=== PATIENT | male | born 1945 | race Caucasian/White ===

== ENCOUNTER 2017-09-22 17:09 | Inpatient (IN) ==
[2017-09-22] MEDS ORDERED: FentaNYL 100 MCG/2 ML INJECTION IVP ONE (18:00)
[2017-09-22] MEDS ORDERED: KETOROLAC 30 MG/ML INJECTION IVP ONE (18:00)
[2017-09-22] MEDS ORDERED: METOCLOPRAMIDE 10mg/2ml INJECTION IVP ONE (18:00)
[2017-09-22] MEDS ORDERED: NS 1,000 ML IV ONE (18:01)
--- NOTE | 2017-09-22 18:05 | Emergency Department Report ---
Abdominal Pain HPI - General Chief Complaint: Abdominal Pain Stated Complaint: abdominal pain radiating to back Time Seen by Provider: 09/22/17 17:52 Source: patient Mode of arrival: ambulatory Limitations: no limitations - History of Present Illness HPI narrative: Patient presents with 1-1/2 hour history of sudden onset epigastric pain radiating into the back and minimally into the lower portion of the chest. Patient was sitting at home watching television when he had sudden onset of pain. Patient denies any chest pain, difficulty breathing, fevers or chills, nausea, vomiting, diarrhea, or other abdominal complaints. Patient has no body aches or sweats. No similar history in the past, no GERD history, no stomach, liver, pancreatic, or gallbladder problems. Patient does have atrial fibrillation, is on Coumadin, has diabetes, and\ orthopedic issues. - Related Data Home Medications Medication Instructions Recorded Confirmed Amlodipine [Norvasc] 10 mg PO DAILY 02/20/17 09/22/17 Atorvastatin [Lipitor] 10 mg PO HS 02/20/17 09/22/17 Cholecalciferol (Vitamin D3) 50,000 unit PO MOTH@0800 02/20/17 09/22/17 [Vitamin D3] Donepezil [Aricept] 5 mg PO HS 02/20/17 09/22/17 Ferrous Sulfate [Feosol] 325 mg PO DAILY 02/20/17 09/22/17 Furosemide [Lasix 20 mg Tab] 40 mg PO DAILY 02/20/17 09/22/17 Gabapentin [Neurontin] 800 mg PO TID 02/20/17 09/22/17 Insulin Degludec *U100* [Tresiba 30 unit SQ HS 02/20/17 09/22/17 Flextouch U-100 Pen] Insulin Lispro [HumaLOG] 10 - 15 unit SQ TIDWM 02/20/17 09/22/17 Metaxalone 800 mg PO TID PRN 02/20/17 09/22/17 Metformin [Glucophage] 500 mg PO BIDWM 02/20/17 09/22/17 Nitroglycerin 0.4 mg SL Q5M PRN 02/20/17 09/22/17 Oxycodone *IR* [Roxicodone *Ir*] 30 mg PO BID 02/20/17 09/22/17 Potassium Chloride [K-Tab ER] 20 meq PO DAILY 02/20/17 09/22/17 Sertraline [Zoloft] 100 mg PO DAILY 02/20/17 09/22/17 Tamsulosin [Flomax] 0.4 mg PO AM 02/20/17 09/22/17 Warfarin [Coumadin] 7.5 mg PO DAILY 02/20/17 09/22/17 Docusate Sodium [Colace] 100 mg PO BID 05/15/17 09/22/17 Oxycodone/Acetaminophen 5/325 1 tab PO Q6H PRN 05/15/17 09/22/17 [Percocet 5/325] Losartan Potassium [Cozaar] 25 mg PO DAILY 09/22/17 09/22/17 Magnesium Hydroxide [Montiel' 622 mg PO HS 09/22/17 09/22/17 Milk of Magnesia] Allergies Allergy/AdvReac Type Severity Reaction Status Date / Time No Known Allergies Allergy Verified 09/22/17 17:17 Review of Systems All systems: reviewed and negative except as stated PFSH Patient Stated Medical History Alzheimer's Disease Yes Angina Yes: HX OF Cardiac Arrhythmia Yes: AFIB Hypertension Yes Diabetes Mellitus Type 2 Yes: IDDM Hiatal Hernia HX OF Ulcer Yes Hx Kidney Stones Yes: HX Other Yes: ON FLOMAX Anemia Yes Osteoarthritis Yes Depression Yes Surgical History: Lumbar spine surgery - Social History Smoking status: Light tobacco smoker Substance use type: does not use Alcohol intake frequency: does not drink Physical Exam - Limitations Limitations: no limitations - General General appearance: alert - Normal Exams: Head:: Normocephalic without trauma Eyes:: Pupils are PERRLA w/ EOMI, No scleral icterus, irritation, or foreign bodies noted ENMT:: No facial trauma, nasal exudates, pharyngeal erythema, or exudates are noted Neck:: Full range of motion, without adenopathy, JVD, bruits or thyromegaly Chest/Respirations:: Clear all thomas, with good airflow, and symmetry bilaterally Cardiovascular:: Regular rate and rhythm, without murmur or gallop, Pulses 2+ all extremities, capillary refill, <2 seconds all extremities Lymphatic:: No lymphadenopathy, or lymphedema noted Musculoskeletal:: No tenderness, or deformity noted, good range of motion, all extremities Integumentary:: No rashes, hives, or bruising noted, hair and nails, without abnormality Neurological:: Patient is alert, and oriented, cranial nerves, motor/sensory/ cerebellar, exams w/o gross deficits, to observation Psychiatric:: Patient exhibits, appropriate attention, emotion and affect - Abdominal Exam Abdominal exam: Present: soft, tenderness (epigastric tenderness, with referred pain anywhere in the abdomen into the epigastrium.), guarding, normal bowel sounds, hypoactive bowel sounds. Absent: distention, rebound, rigidity, diminished bowel sounds, hyperactive bowel sounds, organomegaly, trauma, obturator sign, Perdomo's sign, Rovsing's sign, tenderness at McBurney's Point, mass, bruit, pulsatile mass, hernia Course Vital Signs Temperature 97.9 F 09/22/17 17:12 Pulse Rate 68 09/22/17 17:12 Respiratory Rate 14 09/22/17 17:12 Blood Pressure 156/74 H 09/22/17 17:12 Pulse Oximetry 94 09/22/17 17:12 Temperature 97.9 F 09/22/17 17:12 Pulse Rate 68 09/22/17 17:12 Respiratory Rate 14 09/22/17 17:12 Blood Pressure 156/74 H 09/22/17 17:12 Pulse Oximetry 94 09/22/17 17:12 Abdominal Pain - MDM Narrative Medical decision making narrative: given fentanyl 100 g IV, Toradol 30 mg IV, Reglan 10 mg IV and 1 L normal saline IV fluid bolus - CBC - n CMP/L - n with profoundly elevated lipase 41,000, slight bump in one liver enzyme only. EKG - ventricular paced rhythm, without visible ectopy, or ischemia, no STEMI Troponin - normal UA - CXR/abdomen - mild diffuse chronic changes in the chest only, no obvious abnormalities in the abdomen Patient feels much better after initial medications, I discussed his elevated lipase, and suggested CT scan of the abdomen 2019 - patient complains of increasing pain, given [address] abdomen and pelvis - trace peripancreatic stranding only. Case is discussed with Dr. Vela, we'll admit the patient inpatient for acute pancreatitis - Lab Data Result diagrams: 09/22/17 18:15 09/22/17 18:15 Disposition Clinical Impression: Acute pancreatitis Qualifiers: Pancreatitis type: unspecified pancreatitis type Acute pancreatitis complication: no infection or necrosis Qualified Code(s): K85.90 - Acute pancreatitis without necrosis or infection, unspecified Disposition: 02 To [facility] [place] Acute Care Condition: Improved Prescriptions: No Action Tamsulosin [Flomax] 0.4 mg PO AM Donepezil [Aricept] 5 mg PO HS Metformin [Glucophage] 500 mg PO BIDWM Atorvastatin [Lipitor] 10 mg PO HS Metaxalone 800 mg PO TID PRN PRN Reason: Prn Orders Nitroglycerin 0.4 mg SL Q5M PRN PRN Reason: Chest Pain Insulin Lispro [HumaLOG] 10 - 15 unit SQ TIDWM Warfarin [Coumadin] 7.5 mg PO DAILY Insulin Degludec *U100* [Tresiba Flextouch U-100 Pen] 30 unit SQ HS Amlodipine [Norvasc] 10 mg PO DAILY Cholecalciferol (Vitamin D3) [Vitamin D3] 50,000 unit PO MOTH@0800 Sertraline [Zoloft] 100 mg PO DAILY Ferrous Sulfate [Feosol] 325 mg PO DAILY Docusate Sodium [Colace] 100 mg PO BID Oxycodone/Acetaminophen 5/325 [Percocet 5/325] 1 tab PO Q6H PRN PRN Reason: Pain Losartan Potassium [Cozaar] 25 mg PO DAILY Furosemide [Lasix 20 mg Tab] 40 mg PO DAILY Oxycodone *IR* [Roxicodone *Ir*] 30 mg PO BID Gabapentin [Neurontin] 800 mg PO TID Potassium Chloride [K-Tab ER] 20 meq PO DAILY Magnesium Hydroxide [Montiel' Milk of Magnesia] 622 mg PO HS Referrals: Octaviano Cook MD [Family Provider] - - Seen By: physician
[2017-09-22] MEDS: SALINE FLUSH 10ml SYRINGE IVF PRN ×2 (18:28→20:28)
[2017-09-22] MEDS ORDERED: MORPHINE SULFATE 4mg INJECTION IVP ONE (20:22)
[2017-09-22] MEDS ORDERED: ONDANSETRON 4 MG/2 ML INJECTION IVP PRN (21:44)
[2017-09-22] MEDS ORDERED: METOCLOPRAMIDE 10mg/2ml INJECTION IVP PRN (21:44)
[2017-09-22] MEDS ORDERED: NITROGLYCERIN 0.4 MG SUBLINGUAL TABLET SL PRN (22:22)
[2017-09-22] MEDS: NS 1,000 ML IV SCH (22:34)
[2017-09-22 22:42] VITALS: BMI 38.5
[2017-09-22] MEDS: MORPHINE SULFATE 4mg INJECTION IVP PRN (23:46)
--- NOTE | 2017-09-23 01:35 | History & Physical Report ---
History of Present Illness Date: 09/23/17 Chief complaint: abdominal pain HPI: The pt is a 72 yo who presents to the ER c/o abdominal pain over the epigastric area , constant , sharp nonradiating for about 5 hours. no nausea, vomiting, recent GI illness, never had symptoms like this before. Review of Systems All systems PM: 10-point ROS was reviewed, no additional remarkable complaints except - Constitutional Constitutional: Absent: anorexia, fatigue, fever(s), night sweats, weakness - Cardiovascular Cardiovascular: Absent: chest pain - Respiratory Respiratory: Absent: cough - Gastrointestinal Gastrointestinal: Present: abdominal pain. Absent: change in bowel habits, change in stool character, coffee ground emesis, diarrhea, nausea Past Medical History Patient Stated Medical History Alzheimer's Disease Yes Angina Yes: HX OF Cardiac Arrhythmia Yes: AFIB Hypertension Yes Diabetes Mellitus Type 2 Yes: IDDM Hiatal Hernia HX OF Ulcer Yes Hx Kidney Stones Yes: HX Anemia Yes Osteoarthritis Yes Depression Yes chronic back pain, Surgical History: Lumbar spine surgery Family History Updates: none - Social History Smoking status: Former smoker Substance use type: does not use Alcohol intake: never Alcohol intake frequency: does not drink Housing: house Household members: spouse Current occupational status: retired Medications Home Medications Medication Instructions Recorded Confirmed Type Amlodipine [Norvasc] 10 mg PO DAILY 02/20/17 09/22/17 History Atorvastatin [Lipitor] 10 mg PO HS 02/20/17 09/22/17 History Cholecalciferol (Vitamin D3) 50,000 unit PO MOTH@0800 02/20/17 09/22/17 History [Vitamin D3] Donepezil [Aricept] 5 mg PO HS 02/20/17 09/22/17 History Ferrous Sulfate [Feosol] 325 mg PO DAILY 02/20/17 09/22/17 History Furosemide [Lasix 20 mg Tab] 40 mg PO DAILY 02/20/17 09/22/17 History Gabapentin [Neurontin] 800 mg PO TID 02/20/17 09/22/17 History Insulin Degludec *U100* [Tresiba 30 unit SQ HS 02/20/17 09/22/17 History Flextouch U-100 Pen] Insulin Lispro [HumaLOG] 10 - 15 unit SQ TIDWM 02/20/17 09/22/17 History Metaxalone 800 mg PO TID PRN 02/20/17 09/22/17 History Metformin [Glucophage] 500 mg PO BIDWM 02/20/17 09/22/17 History Nitroglycerin 0.4 mg SL Q5M PRN 02/20/17 09/22/17 History Oxycodone *IR* [Roxicodone *Ir*] 30 mg PO BID 02/20/17 09/22/17 History Potassium Chloride [K-Tab ER] 20 meq PO DAILY 02/20/17 09/22/17 History Sertraline [Zoloft] 100 mg PO DAILY 02/20/17 09/22/17 History Tamsulosin [Flomax] 0.4 mg PO AM 02/20/17 09/22/17 History Warfarin [Coumadin] 7.5 mg PO DAILY 02/20/17 09/22/17 History Docusate Sodium [Colace] 100 mg PO BID 05/15/17 09/22/17 History Oxycodone/Acetaminophen 5/325 1 tab PO Q6H PRN 05/15/17 09/22/17 History [Percocet 5/325] Losartan Potassium [Cozaar] 25 mg PO DAILY 09/22/17 09/22/17 History Magnesium Hydroxide [Montiel' 622 mg PO HS 09/22/17 09/22/17 History Milk of Magnesia] Allergies Allergy/AdvReac Type Severity Reaction Status Date / Time No Known Allergies Allergy Verified 09/22/17 17:17 Exam Vital Signs: Temperature 97.4 F 09/22/17 22:22 Pulse Rate 70 09/22/17 22:22 Respiratory Rate 16 09/22/17 22:22 Blood Pressure 139/71 09/22/17 22:22 Pulse Oximetry 92 09/22/17 22:22 Height/Weight/BMI: Height 1.85 m Weight 132.4 kg Body Mass Index 38.5 - Constitutional Present: no acute distress, well nourished, obese - Routine HEENT Exam Head: Present: normocephalic - Routine Respiratory Exam Present: CTA bilaterally - Routine Cardiovascular Exam Present: RRR, no murmur - Routine Abdominal Exam Present: soft, non tender. Absent: rebound, guarding - Routine Extremities Exam Present: no edema - Routine Skin Exam Present: intact. Absent: rash - Routine Neurological Exam Present: alert, oriented X3 Results - Labs CBC & Chem 7: 09/22/17 18:15 09/22/17 18:15 Assessment and Plan (1) Diabetes 1.5, managed as type 2 Current visit: Yes Status: Acute (2) A-fib Current visit: Yes Status: Acute (3) Chronic back pain greater than 3 months duration Current visit: Yes Status: Acute (4) Acute pancreatitis Current visit: Yes Status: Acute Assessment and Plan: the pt is in stable condition and in no distress surprisingly. Will monitor for changes, repeat lipase in am, check lipids, consider MRCP since CT abd was negative, IV narcotics for pain controll, cont home meds with sips of water but NPO. - Physician Narrative Narrative: Date: 09/23/17 Time: 0132 Hospital Course Summary Disclaimer: The visit summary below is not to be considered part of the above Progress Note.
[2017-09-23] MEDS: MORPHINE SULFATE 4mg INJECTION IVP PRN ×2 (02:28→04:18)
[2017-09-23] MEDS: NS 1,000 ML IV SCH ×2 (08:01→18:02)
--- NOTE | 2017-09-23 08:11 | CT Scan Report ---
Indication: sudden epigastric/RUQ pain, elevated lipase 41K PROCEDURE: CT abdomen pelvis wo con: Encounter: Initial Comparison: Radiographs from the same date Technique: Axial CT images were performed through the abdomen and pelvis without intravenous contrast. Coronal and sagittal two-dimensional reformats. Automated Exposure Control and Iterative Reconstruction dose reducing techniques were utilized. Findings: Mild subpleural scarring in the lung bases. The unenhanced liver is grossly normal. The gallbladder is unremarkable. The spleen and left adrenal glands are within normal limits. There is questionable trace mesenteric stranding surrounding the pancreatic head. Minimal adenomatous hyperplasia of the right adrenal gland. Right renal cyst and small nonobstructing right renal stone. Left kidney is unremarkable. No abdominal or pelvic lymphadenopathy. The bladder is normal. Prostate and rectum are normal. No free fluid. No bowel obstruction. Moderate stool in the colon. The appendix is normal. Bone windows are negative for acute findings. Degenerative and postoperative changes in the thoracolumbar spine. Impression: CT findings of early or mild acute pancreatitis. Otherwise negative exam. There is a preliminary report by [facility]. .
--- NOTE | 2017-09-23 08:37 | XRay Report ---
Indication: epigastric pain with radiation into the back and chest PROCEDURE: PA view of the chest with supine and upright AP views of the abdomen Encounter: Initial Comparison: CT abdomen from the same date FINDINGS: Scarring in the lung bases. No acute pneumonia. No pleural effusion or pneumothorax. The heart size, pulmonary vasculature and mediastinum are within normal limits. Left pacemaker. There is no free air on the upright view. The bowel gas pattern is nonobstructive and nonspecific. Gas is seen in nondilated small and large bowel to the level of the rectum. Moderate stool is seen throughout the colon. IMPRESSION: 1. No acute cardiopulmonary abnormality. 2. No evidence of acute obstruction or free air. .
[2017-09-23] MEDS: TAMSULOSIN 0.4 MG CAPSULE PO SCH ×2 (09:07→09:08)
[2017-09-23] MEDS: OXYCODONE IR PO SCH ×2 (09:08→20:00)
--- NOTE | 2017-09-23 11:58 | Ultrasound Report ---
Indication: pancreatitis PROCEDURE: US gall bladder: Encounter: Initial Comparison: None Technique: Grayscale and color Doppler sonographic imaging of the right upper quadrant of the abdomen was performed. Findings: Hepatic parenchyma is homogeneous without evidence for focal mass. The gallbladder wall is abnormally thickened at 11 mm in diameter. Small mobile shadowing gallstones. Small amount of pericholecystic fluid. Sonographic Perdomo's sign was reportedly positive. Both the intra and extrahepatic biliary system are of normal caliber with the common duct measuring 7 mm in dimension. Visualized portions of the head and body of the pancreas are unremarkable. The right kidney is present without collecting system dilatation. The right kidney measures 14.8 cm in length. Prominent 5 cm right renal cyst. Impression: Acute cholecystitis. Surgical consultation is recommended. .
[2017-09-23] MEDS ORDERED: WARFARIN 7.5 MG TABLET PO SCH (12:00)
[2017-09-23] MEDS ORDERED: PHYTONADIONE 5 MG/2.5 ML ORAL LIQUID PO ONE (14:38)
[2017-09-23] MEDS: LOSARTAN 50 MG TABLET PO SCH (15:27)
--- NOTE | 2017-09-23 19:21 | General Surgery Consult Note ---
Consult date: 09/23/17 Attending Physician: Seda Pearce MD Reason for consult: gallstones (pancreatitis) PFS Patient Stated Medical History Alzheimer's Disease Yes Angina Yes: HX OF Cardiac Arrhythmia Yes: AFIB Hypertension Yes Diabetes Mellitus Type 2 Yes: IDDM Hiatal Hernia HX OF Ulcer Yes Hx Kidney Stones Yes: HX Anemia Yes Osteoarthritis Yes Depression Yes Surgical History: Lumbar spine surgery Family History: Father - "heart stopped" Mother - "heart stopped" - Social History Smoking status: Former smoker Substance use type: does not use Alcohol intake: never Alcohol intake frequency: does not drink Housing: house Household members: spouse Current occupational status: retired Medications Home Medications Medication Instructions Recorded Confirmed Type Amlodipine [Norvasc] 10 mg PO DAILY 02/20/17 09/22/17 History Atorvastatin [Lipitor] 10 mg PO HS 02/20/17 09/22/17 History Cholecalciferol (Vitamin D3) 50,000 unit PO MOTH@0800 02/20/17 09/22/17 History [Vitamin D3] Donepezil [Aricept] 5 mg PO HS 02/20/17 09/22/17 History Ferrous Sulfate [Feosol] 325 mg PO DAILY 02/20/17 09/22/17 History Furosemide [Lasix 20 mg Tab] 40 mg PO DAILY 02/20/17 09/22/17 History Gabapentin [Neurontin] 800 mg PO TID 02/20/17 09/22/17 History Insulin Degludec *U100* [Tresiba 30 unit SQ HS 02/20/17 09/22/17 History Flextouch U-100 Pen] Insulin Lispro [HumaLOG] 10 - 15 unit SQ TIDWM 02/20/17 09/22/17 History Metaxalone 800 mg PO TID PRN 02/20/17 09/22/17 History Metformin [Glucophage] 500 mg PO BIDWM 02/20/17 09/22/17 History Nitroglycerin 0.4 mg SL Q5M PRN 02/20/17 09/22/17 History Oxycodone *IR* [Roxicodone *Ir*] 30 mg PO BID 02/20/17 09/22/17 History Potassium Chloride [K-Tab ER] 20 meq PO DAILY 02/20/17 09/22/17 History Sertraline [Zoloft] 100 mg PO DAILY 02/20/17 09/22/17 History Tamsulosin [Flomax] 0.4 mg PO AM 02/20/17 09/22/17 History Warfarin [Coumadin] 7.5 mg PO DAILY 02/20/17 09/22/17 History Docusate Sodium [Colace] 100 mg PO BID 05/15/17 09/22/17 History Oxycodone/Acetaminophen 5/325 1 tab PO Q6H PRN 05/15/17 09/22/17 History [Percocet 5/325] Losartan Potassium [Cozaar] 25 mg PO DAILY 09/22/17 09/22/17 History Magnesium Hydroxide [Montiel' 622 mg PO HS 09/22/17 09/22/17 History Milk of Magnesia] Allergies Allergy/AdvReac Type Severity Reaction Status Date / Time No Known Allergies Allergy Verified 09/22/17 17:17 Review of Systems 10-point ROS: negative except for HPI and the following: - Cardiovascular Cardiovascular: Present: irregular heart beat (a-fib) - Gastrointestinal Gastrointestinal: Present: constipation - Musculoskeletal Musculoskeletal: Present: back pain, joint pain - Neurological Neurological: Present: numbness (neuropathy) - Psychiatric Psychiatric: Present: depression - Endocrine Endocrine: Present: diabetes - Hematologic/Lymphatic Hematologic/Lymphatic: Present: easy bruising, use of blood thinners - Vital Signs Last Vital Signs Temp 97.8 F 09/23/17 15:00 Pulse 62 09/23/17 15:00 Resp 20 09/23/17 15:00 BP 143/80 H 09/23/17 15:00 Pulse Ox 93 09/23/17 15:00 - Laboratory Result Diagrams: 09/23/17 05:18 09/23/17 05:18 General Surgery Results - Results Labs: 09/23/17 05:18 09/23/17 05:18 Hospital Course Summary Disclaimer: The visit summary below is not to be considered part of the above Progress Note.
[2017-09-23] MEDS: ATORVASTATIN 10 MG TABLET PO SCH (20:00)
--- NOTE | 2017-09-23 20:31 | Consultation ---
DATE OF CONSULTATION 09/23/2017 FINDINGS Mr. Sandy is a 72-year-old gentleman whom I was asked to see today as a result of his history and physical findings of abdominal pain in conjunction with laboratory and radiographic evidence consistent with gallstone pancreatitis. Patient informs me that the other day he was working out on his garage and had come back in to rest. He states that he then developed severe pain within his upper abdomen. Patient states he called his who was at work. Patient states his brought him into the hospital once she had "gotten home." Patient states that he was subsequently admitted to the hospital. Denies any history for alcohol use. Patient states that today he is feeling a little better but continues to have back pain. The patient informed me that he does suffer from chronic back pain. The pain within his epigastric region was constant in nature. He did have a component of some nausea in association with the pain. Pain was described as radiating in towards his back. PAST MEDICAL HISTORY, PAST SURGICAL HISTORY, MEDICATIONS, ALLERGIES, SOCIAL HISTORY, FAMILY HISTORY, REVIEW OF SYSTEMS Performed by my nurse practitioner, Chirag Lazo APRN. PHYSICAL EXAM GENERAL: Mr. Sandy is a 72-year-old gentleman who this evening did not appear to be in acute distress. VITAL SIGNS: Temperature 97.8, pulse 62, respirations 20, blood pressure 143/80 , SAO2 93% on room air. HEENT: Normocephalic. Pupils are equally round and react to light and accommodation. NECK: Supple without lymphadenopathy. CHEST: Clear to auscultation bilaterally. HEART: Regular rate and rhythm. Normal S1 and S2 without gallops, murmurs or clicks. ABDOMEN: Palpation of the abdomen did reveal some tenderness within the epigastric region. There was a slight component of some voluntary guarding but no evidence for involuntary guarding or rebound tenderness. I do not appreciate any evidence for hepatosplenomegaly or other abnormal masses. EXTREMITIES: Without clubbing, cyanosis, or edema. NEURO: Cranial nerves II-XII grossly intact. Patient is without focal motor or sensory deficits. LABORATORY/RADIOGRAPHIC EVALUATION The patient did have a CBC, CMP and lipase level upon admission. His lipase was significantly elevated at 41,383. His lipase today has markedly improved at 7561. He does have some elevation of his liver function tests today with an AST and ALT of 173 and 109, respectively. Alkaline phosphatase is normal at 58. Total bilirubin is normal at 1.0. CBC was obtained today and found to be without marked abnormalities. Radiographically, he did have a CT scan of his abdomen and pelvis. Findings were consistent with that of mild acute pancreatitis, otherwise negative exam. The patient did have a gallbladder ultrasound obtained as well. Gallbladder ultrasound revealed that the gallbladder wall was abnormally thickened at 11 mm. There were several small multiple shadowing gallstones as well as a small amount of pericholecystic fluid. Findings were consistent with that of an acute cholecystitis. ASSESSMENT 72-year-old gentleman with associated medical comorbidities including atrial fibrillation requiring chronic coumadinization who developed gallstone pancreatitis. Patient improving from a clinical and laboratory standpoint. PLAN Would recommend that we continue with current care. Earlier today the patient was given vitamin K to reverse his INR. Will recheck INR tomorrow as well as repeat lab with lipase levels. When his lipase has essentially returned to normal, his INR is an acceptable level and his abdominal pain has resolved, it would be my recommendation that at that time we would then proceed with surgical intervention/laparoscopic possible robotic- assisted cholecystectomy. I did discuss with the patient what a laparoscopic cholecystectomy would entail and its associated risks which included but were not inclusive of bleeding, infection, potential conversion to open procedure, as well as potential injury to adjacent structures, especially the common bile duct. The patient understood and agreed with the proposed plan/algorithm as stated above. TRICE
[2017-09-24] MEDS: NS 1,000 ML IV SCH ×2 (03:53→15:07)
[2017-09-24] MEDS: MORPHINE SULFATE 4mg INJECTION IVP PRN ×3 (04:43→15:15)
--- NOTE | 2017-09-24 08:37 | General Surgery Progress Note ---
Subjective Patient reports: flatus, afebrile Narrative: Morphine during the night was mostly for back pain. States minimal epigastric and RUQ pain, but pain increased RUQ with palpation. Denies nausea. - Vital Signs Last Vital Signs Temp 97.3 F 09/24/17 07:30 Pulse 65 09/24/17 07:30 Resp 16 09/24/17 07:30 BP 151/88 H 09/24/17 07:30 Pulse Ox 93 09/24/17 07:30 - Laboratory Result Diagrams: 09/24/17 03:53 09/24/17 03:53 Laboratory Tests 09/22/17 09/23/17 09/23/17 18:15 05:18 05:18 INR Total Bilirubin 1.20 1.00 AST 60 H 173 H D ALT 25 109 H D Lipase 46948 H 7561 H 09/23/17 09/24/17 09/24/17 12:07 03:53 03:53 INR 2.43 H 1.82 H Total Bilirubin 1.40 H AST 63 H D ALT 75 H Lipase 591 H D - Abnormal Exam Abdominal: obese, tender (mild RUQ) - Normal Exam General: awake, alert, oriented, no acute distress Respiratory: clear bilaterally, no labored breathing Abdominal: BS normo active x4, soft Psychiatric: normal affect Assessment and Plan (1) Gallstone pancreatitis Current Visit: Yes Status: Acute Plan: Lipase down to 591 today (7561 yesterday) INR 1.83 would like it 1.5 or less before surgery. Bilirubin up a little 1.40 (1.00 yesterda). Per Dr. Fowler, full liquids and dose vitamin K today. Plan on Robotic lap noe tomorrow. Hospital Course Summary Disclaimer: The visit summary below is not to be considered part of the above Progress Note.
[2017-09-24] MEDS ORDERED: PHYTONADIONE (Adult) INJ 10 MG in NS 50 ML IV ONE (08:44)
[2017-09-24] MEDS: TAMSULOSIN 0.4 MG CAPSULE PO SCH (09:17)
[2017-09-24] MEDS: OXYCODONE IR PO SCH ×2 (09:17→20:07)
[2017-09-24] MEDS: LOSARTAN 50 MG TABLET PO SCH (09:17)
[2017-09-24] MEDS ORDERED: BISACODYL 10 MG SUPPOSITORY RECTALLY PRN (11:21)
--- NOTE | 2017-09-24 11:29 | Progress Note ---
- Date 09/24/17 Subjective: Patient is feeling well today. Reported back pain overnight which is chronic for him and worsened by hospital bed. He reports his abdominal pain is most resolved. Tolerated a clear liquid diet well and is eating this am on exam. 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 His INR was 1.8 today so plans for surgery tomorrow. Objective Vital signs: Temperature 97.3 F 09/24/17 07:30 Pulse Rate 60 09/24/17 08:00 Respiratory Rate 16 09/24/17 07:30 Blood Pressure 151/88 H 09/24/17 07:30 Pulse Oximetry 93 09/24/17 07:30 Height/Weight/BMI: Height 6 ft 1 in Weight 133 kg Body Mass Index 38.5 - Constitutional Present: no acute distress, obese - Routine HEENT Exam Head: Present: normocephalic, atraumatic Eye: Present: EOMI, conjunctivae pink ENT: Present: mucous membranes moist, nares patent - Routine Respiratory Exam Present: CTA bilaterally. Absent: wheezes, crackles - Routine Abdominal Exam Present: soft, normoactive bowel sounds, non distended, non tender. Absent: tenderness, rebound, guarding - Routine Extremities Exam Present: no edema, pulses intact, normal capillary refill. Absent: cyanosis, clubbing - Routine Back/Spine/Pelvis Exam Back/Spine: Absent: erythema, warmth - Routine Musculoskeletal Exam Musculoskeletal: Present: no clubbing or cyanosis, normal strength. Absent: no tenderness, no erythema - Routine Skin Exam Present: intact, dry, warm - Routine Neurological Exam Present: alert, oriented X3, CN II-XII intact - Routine Psychiatric Exam Present: normal affect, normal thought process Results - Labs CBC & Chem 7: 09/24/17 03:53 09/24/17 03:53 Assessment and Plan (1) Acute pancreatitis Current visit: Yes Status: Acute (2) Diabetes 1.5, managed as type 2 Current visit: Yes Status: Acute (3) A-fib Current visit: Yes Status: Acute (4) Chronic back pain greater than 3 months duration Current visit: Yes Status: Acute Assessment and Plan: Assessment Acute Gallstone pancreatitis Abdominal pain/RUQ pain Transaminitis-improving Back pain Constipation A fib with resting bradycardia Pacemaker dependent joint terminal attack controller anticoagulation DM2, on insulin Coronary artery disease Alzheimer's dementia Hx lumbar spinal stenosis Plan Plan for surgery (lap noe) tomorrow if INR <1.5 Discuss Vit K with surgery team Monitor labs Pain control PRN Glucose control, diabetic diet and glucose monitoring Begin bowel regimen SCDs - Physician Narrative Physician: other (Ashanti Rios MD) Narrative: Date: 09/24/17 Time: 1124 Hospital Course Summary Disclaimer: The visit summary below is not to be considered part of the above Progress Note.
[2017-09-24] MEDS: INSULIN ASPART 100unit/ml INJECTION SQ PRN ×3 (11:58→20:07)
[2017-09-24] MEDS: SENNA + DOCUSATE TABLET PO PRN (11:59)
[2017-09-24] MEDS: INSULIN ASPART 100unit/ml INJECTION SQ SCH ×2 (13:10→18:03)
--- NOTE | 2017-09-24 16:43 | Progress Note ---
DATE OF SERVICE 09/24/2017 FINDINGS Mr. Sandy stated that he was feeling better today. States that he "feels well enough he would like to go home." PHYSICAL EXAM VITAL SIGNS: Afebrile, normotensive. Last recorded vitals include temperature 97.3, pulse 65, respirations 16, blood pressure 151/88, SAO2 93% on room air. CHEST: Clear to auscultation bilaterally. HEART: Regular rate and rhythm. Normal S1 and S2 without gallops, murmurs or clicks. ABDOMEN: Palpation of the abdomen today reveals it to be soft and essentially nontender. He does have some minimal tenderness within the epigastric region but this is improved from yesterday. No evidence for guarding or rebound. LABORATORY/RADIOGRAPHIC EVALUATION The patient had CBC, INR and CMP obtained today. CBC is stable. Hemoglobin is 13.3. White count 7.8. INR remains elevated but improved at to 1.82. CMP reveals a total bilirubin to have increased slightly to 1.4. AST and ALT are improved at 63 and 75, respectively. Lipase remains elevated at 591. ASSESSMENT 72-year-old gentleman with resolving gallstone pancreatitis. PLAN Will go and place the patient on full liquids today. Will go ahead and give some additional vitamin K to reverse his coagulopathy. Will repeat lipase levels tomorrow. Will keep n.p.o. tonight in preparation for planned cholecystectomy tomorrow. I informed the patient that today I would like to go ahead and try to reverse his coagulopathy and allow his pancreatitis to completely resolve before proceeding with surgical intervention. I informed the patient that more than likely we would proceed with cholecystectomy tomorrow. The patient understood and agreed with the proposed plan. TRICE
[2017-09-24] MEDS: ATORVASTATIN 10 MG TABLET PO SCH (20:07)
[2017-09-25] MEDS: NS 1,000 ML IV SCH ×5 (00:15→22:36)
[2017-09-25] MEDS: MORPHINE SULFATE 4mg INJECTION IVP PRN (02:25)
[2017-09-25] MEDS: INSULIN ASPART 100unit/ml INJECTION SQ SCH ×2 (08:33→13:03)
--- NOTE | 2017-09-25 09:15 | Progress Note ---
- Date 09/25/17 Subjective: Patient is doing well today other than complaining of back pain. He is disappointed surgery isn't earlier in the day because he wants to go home. Plans for OR around 1400 today. Objective Vital signs: Temperature 97.1 F 09/25/17 07:47 Pulse Rate 64 09/25/17 07:47 Respiratory Rate 14 09/25/17 07:47 Blood Pressure 161/74 H 09/25/17 07:47 Pulse Oximetry 92 09/25/17 07:47 Height/Weight/BMI: Height 6 ft 1 in Weight 133 kg Body Mass Index 38.5 - Constitutional Present: no acute distress, obese - Routine HEENT Exam Head: Present: normocephalic, atraumatic Eye: Present: EOMI, conjunctivae pink ENT: Present: mucous membranes moist, nares patent - Routine Respiratory Exam Present: CTA bilaterally. Absent: respiratory distress - Routine Cardiovascular Exam Present: RRR, no murmur - Routine Abdominal Exam Present: soft, normoactive bowel sounds. Absent: tenderness - Routine Extremities Exam Present: no edema. Absent: cyanosis, clubbing - Routine Musculoskeletal Exam Musculoskeletal: Present: normal strength, moving extremities well - Routine Skin Exam Present: intact, dry, warm - Routine Neurological Exam Present: alert, oriented X3, CN II-XII intact - Routine Psychiatric Exam Present: normal affect, normal thought process Results - Labs CBC & Chem 7: 09/25/17 03:54 09/25/17 03:54 Assessment and Plan (1) Acute pancreatitis Current visit: Yes Status: Acute (2) Diabetes 1.5, managed as type 2 Current visit: Yes Status: Acute (3) A-fib Current visit: Yes Status: Acute (4) Chronic back pain greater than 3 months duration Current visit: Yes Status: Acute Assessment and Plan: Assessment Acute Gallstone pancreatitis Abdominal pain/RUQ pain Transaminitis-improved Back pain Constipation-had moderate BM yesterday A fib with resting bradycardia Pacemaker dependent FDC anticoagulation-currently on hold for surgery DM2, on insulin Coronary artery disease Alzheimer's dementia Hx lumbar spinal stenosis Plan Plan for surgery this afternoon Monitor labs Pain control PRN Glucose control, diabetic diet and glucose monitoring Continue bowel regimen Will discuss timing of restarting of anticoagulation with surgery team SCDs DVT Prophylaxis: SCD's Resuscitation Status: Full Code - Physician Narrative Physician: other (Ashanti Rios MD) Narrative: Date: 09/25/17 Time: 0910 Hospital Course Summary Disclaimer: The visit summary below is not to be considered part of the above Progress Note. 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 DM2, on insulin Coronary artery disease Alzheimer's dementia Hx lumbar spinal stenosis Plan Plan for surgery (lap noe) tomorrow if INR <1.5 Discuss Vit K with surgery team Monitor labs Pain control PRN Glucose control, diabetic diet and glucose monitoring Begin bowel regimen SCDs 09/25 Assessment Acute Gallstone pancreatitis Abdominal pain/RUQ pain Transaminitis-improved Back pain Constipation-had moderate BM yesterday A fib with resting bradycardia Pacemaker dependent FDC anticoagulation-currently on hold for surgery DM2, on insulin Coronary artery disease Alzheimer's dementia Hx lumbar spinal stenosis Plan Plan for surgery this afternoon Monitor labs Pain control PRN Glucose control, diabetic diet and glucose monitoring Continue bowel regimen Will discuss timing of restarting of anticoagulation with surgery team SCDs
[2017-09-25] MEDS: TAMSULOSIN 0.4 MG CAPSULE PO SCH (09:19)
[2017-09-25] MEDS: LOSARTAN 50 MG TABLET PO SCH (09:19)
[2017-09-25] MEDS: OXYCODONE IR PO SCH ×2 (09:19→22:22)
[2017-09-25] MEDS ORDERED: BUPIVACAINE 0.25%/EPI 1:200,000 30ml SDV ONE (13:26)
[2017-09-25] MEDS ORDERED: INDOCYANINE GREEN 25mg INJECTION ONE (13:26)
[2017-09-25] MEDS ORDERED: SALINE FLUSH 10ml SYRINGE ONE (13:30)
[2017-09-25] MEDS ORDERED: IOHEXOL 300mg/ml 50ml INJECTION ONE (13:30)
--- NOTE | 2017-09-25 13:42 | General Surgery Progress Note ---
Subjective Patient reports: feels better, pain is less (just minimal pain with palpation RUQ.) Narrative: Lipase back to normal 133 INR 1.26, Bilirubin elevated at 1.40 - Vital Signs Last Vital Signs Temp 97.1 F 09/25/17 07:47 Pulse 63 09/25/17 08:00 Resp 14 09/25/17 07:47 BP 161/74 H 09/25/17 07:47 Pulse Ox 92 09/25/17 07:47 - Laboratory Result Diagrams: 09/25/17 03:54 09/25/17 03:54 - Abnormal Exam Abdominal: obese, tender (RUQ) - Normal Exam General: awake, alert, oriented, no acute distress Cardiovascular: regular rate Respiratory: no labored breathing Assessment and Plan (1) Gallstone pancreatitis Current Visit: Yes Status: Acute Plan: Plan Robitc lap noe this afternoon. Plan on DC to home tomorrow if all goes well. Hospital Course Summary Disclaimer: The visit summary below is not to be considered part of the above Progress Note. Hospital Course: 09/24 Assessment Acute Gallstone pancreatitis Abdominal pain/RUQ pain Transaminitis-improving Back pain Constipation A fib with resting bradycardia Pacemaker dependent exterminator helper anticoagulation DM2, on insulin Coronary artery disease Alzheimer's dementia Hx lumbar spinal stenosis Plan Plan for surgery (lap noe) tomorrow if INR <1.5 Discuss Vit K with surgery team Monitor labs Pain control PRN Glucose control, diabetic diet and glucose monitoring Begin bowel regimen SCDs 09/25 Assessment Acute Gallstone pancreatitis Abdominal pain/RUQ pain Transaminitis-improved Back pain Constipation-had moderate BM yesterday A fib with resting bradycardia Pacemaker dependent exterminator helper anticoagulation-currently on hold for surgery DM2, on insulin Coronary artery disease Alzheimer's dementia Hx lumbar spinal stenosis Plan Plan for surgery this afternoon Monitor labs Pain control PRN Glucose control, diabetic diet and glucose monitoring Continue bowel regimen Will discuss timing of restarting of anticoagulation with surgery team SCDs
[2017-09-25] MEDS ORDERED: INDOCYANINE GREEN 25mg INJECTION IVP ONE (13:47)
[2017-09-25] MEDS ORDERED: SALINE FLUSH 10ml SYRINGE IV ONE (13:47)
[2017-09-25] MEDS ORDERED: IOHEXOL 300mg/ml 50ml INJECTION OPSITE ONE (13:49)
[2017-09-25] MEDS ORDERED: BUPIVACAINE 0.25%/EPI 1:200,000 30ml SDV ID ONE (13:49)
[2017-09-25] MEDS ORDERED: SCOPOLAMINE 1mg/3 days PATCH (Eq. 1.5 Patch) TD ONE (13:58)
--- NOTE | 2017-09-25 13:58 | Anesthesia Preoperative Report ---
Anesthesia Preoperative Record - Date and Time Date: 09/25/17 Preoperative Diagnosis: pancreatitis Proposed Procedure: Lap noe NPO Since Date: 09/25/17 NPO Since Time: 00:00 Allergies/Adverse Reactions: Allergies Allergy/AdvReac Type Severity Reaction Status Date / Time No Known Allergies Allergy Verified 09/22/17 17:17 - Vital Signs Vital Signs: Temperature 97.7 F 09/25/17 13:54 Pulse Rate 70 09/25/17 13:54 Respiratory Rate 20 09/25/17 13:54 Blood Pressure 189/84 H 09/25/17 13:54 Pulse Oximetry 92 09/25/17 13:54 Height and Weight: Height 1.85 m Weight 133 kg Body Mass Index 38.5 - Medications Inpatient Medications: Current Medications Atorvastatin Calcium (Lipitor) 10 mg PO HS [facility] Last Admin: 09/24/17 20:07 Dose: 10 mg Bisacodyl (Dulcolax) 10 mg RECTALLY DAILY PRN PRN Reason: Constipation Sodium Chloride (Normal Saline) 1,000 mls @ 100 mls/hr IV .Q10H [facility] Last Admin: 09/25/17 13:03 Dose: 100 mls/hr Insulin Aspart (Novolog) 1 - 5 unit SQ SS PRN; Protocol PRN Reason: Hyperglycemia Last Admin: 09/24/17 20:07 Dose: 1 unit Insulin Aspart (Novolog) 10 - 15 unit SQ TIDWM [facility] Last Admin: 09/25/17 13:03 Dose: Not Given Losartan Potassium (Cozaar) 25 mg PO DAILY [facility] Last Admin: 09/25/17 09:19 Dose: 25 mg Magnesium Hydroxide (Mom) 30 ml PO DAILY [facility] Last Admin: 09/25/17 09:19 Dose: Not Given Metoclopramide HCl (Reglan) 5 mg IVP Q6H PRN Morphine Sulfate (Morphine Sulfate Inj) 2 - 4 mg IVP Q2H PRN PRN Reason: Pain Last Admin: 09/25/17 02:25 Dose: 4 mg Nitroglycerin (Nitrostat) 0.4 mg SL Q5M PRN PRN Reason: Chest pain Ondansetron HCl (Zofran) 4 mg IVP Q6H PRN PRN Reason: Nausea &/or vomiting Oxycodone HCl (Roxicodone *Ir*) 30 mg PO BID [facility] Last Admin: 09/25/17 09:19 Dose: 30 mg Senna/Docusate Sodium (Senna Plus Tablet) 1 tab PO BID PRN PRN Reason: Constipation Last Admin: 09/24/17 11:59 Dose: 1 tab Sodium Chloride (Iv Flush) 10 - 80 ml IVF PRN PRN PRN Reason: Flushing Last Admin: 09/22/17 20:28 Dose: 30 ml Tamsulosin HCl (Flomax) 0.4 mg PO DAILY [facility] Last Admin: 09/25/17 09:19 Dose: 0.4 mg Warfarin Sodium (Coumadin) 7.5 mg PO NOON [facility] Last Admin: 09/23/17 14:28 Dose: Not Given Home Medications: Home Medications Medication Instructions Recorded Confirmed Type Amlodipine [Norvasc] 10 mg PO DAILY 02/20/17 09/22/17 History Atorvastatin [Lipitor] 10 mg PO HS 02/20/17 09/22/17 History Cholecalciferol (Vitamin D3) 50,000 unit PO MOTH@0800 02/20/17 09/22/17 History [Vitamin D3] Donepezil [Aricept] 5 mg PO HS 02/20/17 09/22/17 History Ferrous Sulfate [Feosol] 325 mg PO DAILY 02/20/17 09/22/17 History Furosemide [Lasix 20 mg Tab] 40 mg PO DAILY 02/20/17 09/22/17 History Gabapentin [Neurontin] 800 mg PO TID 02/20/17 09/22/17 History Insulin Degludec *U100* [Tresiba 30 unit SQ HS 02/20/17 09/22/17 History Flextouch U-100 Pen] Insulin Lispro [HumaLOG] 10 - 15 unit SQ TIDWM 02/20/17 09/22/17 History Metaxalone 800 mg PO TID PRN 02/20/17 09/22/17 History Metformin [Glucophage] 500 mg PO BIDWM 02/20/17 09/22/17 History Nitroglycerin 0.4 mg SL Q5M PRN 02/20/17 09/22/17 History Oxycodone *IR* [Roxicodone *Ir*] 30 mg PO BID 02/20/17 09/22/17 History Potassium Chloride [K-Tab ER] 20 meq PO DAILY 02/20/17 09/22/17 History Sertraline [Zoloft] 100 mg PO DAILY 02/20/17 09/22/17 History Tamsulosin [Flomax] 0.4 mg PO AM 02/20/17 09/22/17 History Warfarin [Coumadin] 7.5 mg PO DAILY 02/20/17 09/22/17 History Docusate Sodium [Colace] 100 mg PO BID 05/15/17 09/22/17 History Oxycodone/Acetaminophen 5/325 1 tab PO Q6H PRN 05/15/17 09/22/17 History [Percocet 5/325] Losartan Potassium [Cozaar] 25 mg PO DAILY 09/22/17 09/22/17 History Magnesium Hydroxide [Montiel' 622 mg PO HS 09/22/17 09/22/17 History Milk of Magnesia] Is Patient on Beta Merrill?: No - Medical History Cardiovascular: Reports: Angina (HX OF), Arrhythmia (AFIB), Coronary Artery Disease, Hypertension, High Cholesterol Gastrointestional: Reports: Hiatal Hernia (HX OF), Ulcer Neuro/Musculoskeletal: Reports: HX.MS.OSAR, Back Problems, Depression, Muscle Weakness Renal/Endocrine: Reports: Diabetes Mellitus Type 2 (IDDM) - Surgical History Cardiac Surgeries/Treatments: Reports: Cardiac Catheterization (STENTS X2-2015) , Pacemaker GI Surgery/Treatments: Reports: Colonoscopy, EGD Musculoskeletal Surgery/Tx: Reports: Total Knee Replacement (BILATERAL), Other ( T12 GEN & SCREWSD) Anesthesia Reactions: None - Social History Smoking Status: Former smoker Hx Chewing Tobacco Use: No Second Hand Exposure: No Substance Use Type: does not use Alcohol Intake: never Alcohol Intake Frequency: does not drink - Pertinent Findings Laboratory: CBC and BMP 09/25/17 03:54 09/25/17 03:54 BMP 09/25/17 03:54 Sodium 142 Potassium 3.9 Chloride 105 Carbon Dioxide 29 BUN 9.0 Creatinine 0.6 L Glucose 123 H Calcium 9.0 Liver Function 09/25/17 Range/Units 03:54 Total Bilirubin 1.40 H (0.20-1.30) MG/DL AST 36 (17-59) U/L ALT 54 H (1-50) U/L Alkaline Phosphatase 54 (38-126) U/L Albumin 3.8 (3.5-5.0) g/dL EKG: A-fib Paced: 100% - Physical Exam Respiratory Exam: Present: lungs clear Cardiovascular Exam: Present: regular rate and rhythm - Airway Assessment Overall Assessment: no airway concerns - ASA ASA Score: 3 - Plan Anesthesia: General Inhalation Gases - Discussion Discussion: Discussed risks/options/alternatives of anesthesia and questions answered. Patient consents. Nursing pain assessment noted. Present for Discussion: spouse Attestation Statement: Prior to the delivery of any anesthetic medication, I examined the patient, developed the plan, obtained the patient's consent and discussed the risk and benefits of the procedure with the patient/guardian. - Additional Information Seen by Anesthesia: Yes
[2017-09-25] MEDS ORDERED: SUCCINYLCHOLINE 20mg/mL 10mL INJECTION ONE (14:38)
[2017-09-25] MEDS ORDERED: PROPOFOL 20 ML ONE (14:38)
[2017-09-25] MEDS ORDERED: LIDOCAINE 2% (100mg/5mL) 5ml PF SDV ONE (14:38)
[2017-09-25] MEDS ORDERED: ROCURONIUM 50 MG/5 ML INJECTION IVP ONE ×3 (14:38→16:25)
[2017-09-25] MEDS ORDERED: FentaNYL 250 MCG/5 ML INJECTION ONE (15:17)
--- NOTE | 2017-09-25 16:48 | Remote Fluorsocopy Report ---
Indication: IOC PROCEDURE: RF cholangiogram operative: Comparison: Gallbladder ultrasound dated September 23, 2017 Findings: 4 fluoroscopic spot images are submitted from an intraoperative cholangiogram. Images demonstrate injection of contrast into the cystic duct with filling of the common duct and intrahepatic biliary tree. No discrete filling defects are identified. Contrast flows into the duodenum. Impression: Intraoperative fluoroscopy as above. Please refer to the dictated operative note for further details. Fluoroscopy time is 22.9 seconds. Fluoroscopy dose is 1440 mRad. .
[2017-09-25] MEDS ORDERED: SUGAMMADEX 200mg/2ml INJECTION IVP ONE (16:59)
[2017-09-25] MEDS ORDERED: DEXAMETHASONE 4 MG/ML INJECTION ONE (16:59)
[2017-09-25] MEDS ORDERED: ONDANSETRON 4 MG/2 ML INJECTION ONE (16:59)
--- NOTE | 2017-09-25 17:11 | General Surgery Procedure Note ---
Date of Procedure: 09/25/17 Surgeon: Malcolm Special Education Educational Assistant: Chirag Lazo APRN Postoperative Diagnosis: Gallstone pancreatitis Procedure: Laparoscopic cholecystectomy with firefly imaging and intraoperative cholangiogram Estimated Blood Loss: See Anesthesia Record.
[2017-09-25] MEDS ORDERED: METOCLOPRAMIDE 10mg/2ml INJECTION IVP PRN (17:18)
[2017-09-25] MEDS ORDERED: ONDANSETRON 4 MG/2 ML INJECTION IVP PRN (17:18)
[2017-09-25] MEDS ORDERED: FentaNYL 100 MCG/2 ML INJECTION IVP PRN (17:18)
[2017-09-25] MEDS: HYDROMORPHONE 2 MG/ML INJECTION IVP PRN ×3 (17:24→18:05)
[2017-09-25] MEDS ORDERED: INSULIN REGULAR, HUMAN 100 UNIT/ML INJECTION SQ ONE (17:29)
--- NOTE | 2017-09-25 18:28 | Anesthesia Postoperative Note ---
- Date and Time Date: 09/25/17 Time: 18:28 - Status Patient Participated in Evaluation: Patient Participated in Person (Confused) Vital Signs: Temperature 97.5 F 09/25/17 17:09 Pulse Rate 60 09/25/17 18:00 Respiratory Rate 14 09/25/17 17:30 Blood Pressure 170/83 H 09/25/17 18:00 Pulse Oximetry 95 09/25/17 18:00 Respiratory Function: Airway Patent Cardiovascular Function: Regular Pulse EKG: Sinus Rhythm Pain Intensity: 0 Hydration: IV Infusing Complications During Recover: None Apparent - Follow-Up Instructions Instructions: Per Surgeon
[2017-09-25] MEDS ORDERED: KETOROLAC 15 MG/ML INJECTION IVP PRN (18:34)
[2017-09-25] MEDS: METFORMIN 500 MG TABLET PO SCH (18:55)
[2017-09-25] MEDS ORDERED: DONEPEZIL 5 MG TABLET PO SCH (21:00)
[2017-09-25] MEDS: INSULIN ASPART 100unit/ml INJECTION SQ PRN (22:22)
[2017-09-25] MEDS: GABAPENTIN 800 MG TABLET PO SCH (22:23)
[2017-09-25] MEDS: SENNA + DOCUSATE TABLET PO PRN (22:23)
[2017-09-25] MEDS: ATORVASTATIN 10 MG TABLET PO SCH (22:23)
--- NOTE | 2017-09-25 23:57 | Operative Note ---
DATE OF SERVICE 09/25/2017 SURGEON Juni Fowler MD [employer]OD AND [employer]EVERAGE CHECKER Chirag Lazo APRN PREOPERATIVE DIAGNOSIS Symptomatic cholelithiasis/gallstone pancreatitis. POSTOPERATIVE DIAGNOSIS Symptomatic cholelithiasis/gallstone pancreatitis. PROCEDURE Laparoscopic cholecystectomy with intraoperative cholangiogram. ANESTHESIA General endotracheal anesthesia. EBL/FLUIDS Please see chart. BRIEF HISTORY/INDICATIONS Mr. Sandy is a 72-year-old gentleman who recently was admitted to our facility as a result of severe abdominal pain and the findings of pancreatitis upon laboratory evaluation. The patient subsequently underwent additional radiographic evaluation following admission. He was found to have evidence for cholelithiasis and cholecystitis upon ultrasonography. It was recommended to the patient that he therefore undergo surgical intervention as a result of his finding of gallstone pancreatitis. For completeness please refer to notes included in the patient's chart. FINDINGS Upon laparoscopy the patient's liver was somewhat enlarged but Germania's capsule was smooth and without nodularities to suggest underlying cirrhosis. There was considerable omental fat within the peritoneal cavity which did limit visualization. The stomach and small bowel was dilated as well as the colon indicative of an ileus. Clinically, however, the patient was not complaining of an element of nausea or vomiting preoperatively. The gallbladder was somewhat intrahepatic in nature. The gallbladder was found to be thickened in nature and contained a small amount of pericholecystic edema indicative of inflammation. There was a small amount of ascitic fluid most likely as a result of his prior inflammatory response from his pancreatitis. The patient's enzymes had returned to normal today. He was without abdominal pain upon palpation. NARRATIVE OF PROCEDURE After informed consent was obtained the patient was brought to the operative suite and placed on the table in supine fashion. The abdomen was prepped and draped in sterile fashion. Formal timeout was then completed. 0.25% Marcaine with epinephrine was injected just beneath the level of the umbilicus. A 2-cm curved incision was made through the area of analgesia. Dissection was carried down to the underlying subcuticular tissues to the underlying fascia. The fascia was then grasped with two Claudio clamps and retracted anteriorly. A 1-cm incision was made between the two Claudio clamps. A hemostat was introduced into the fascial incision and gently spread. A mattress suture of 0-Vicryl was then placed at the fascial opening. A 12-mm Tera port was then placed in the peritoneal cavity and pneumoperitoneum was established to a patient pressure of 15 mmHg utilizing carbon dioxide. Next, three additional 5-mm ports were placed within the epigastric region, right mid abdomen and right lateral abdominal wall. Each port site was preinjected with 0.25% Marcaine with epinephrine and placed under direct visualization. Upon laparoscopy, as stated above, the liver was enlarged and did extend below the subcostal margin perhaps four to five fingerbreadths. There were some adhesions between the omentum and the lower edge of the liver. Initially, the gallbladder itself was not able to be visualized. The gallbladder was located out further laterally than one typically sees. There was a small amount of ascitic fluid present. As stated above, Germania's capsule was smooth and without nodularities. There was a component of distention of the stomach and the colon as well as small bowel. It was requested that Anesthesia place a nasogastric tube to decompress the stomach to facilitate better visualization. The omentum adjacent to the liver was then dissected away bluntly as well as with the use of electrocautery. At no point in time was electrocautery performed adjacent to a hollow viscus such as the transverse colon, duodenum or stomach. One could then now visualize the fundal portion of the gallbladder. The fundal portion of the gallbladder was grasped and retracted anteriorly. The omentum was continued to be dissected away from the liver edge as well as from the gallbladder. Visualization was difficult as a result of the patient's obesity and intraperitoneal fat. I elected therefore to place an additional port for retraction purposes. A 12-mm port was then placed along the left lateral abdominal wall under direct visualization. A Fan retractor was placed through this port and then placed adjacent to the gallbladder and the intraperitoneal fat/transverse colon and omentum was retracted caudally so that one could see the gallbladder to a greater extent. The procedure was technically difficult as a result of the patient's obesity and the fact that the gallbladder was intrahepatic in nature. Dissection was begun initially high upon the infundibulum of the gallbladder with the use of electrocautery. Lateral and medial aspects of the infundibulum of the gallbladder were incised. The posterior aspect of the infundibulum of the gallbladder was then freed from the liver bed fossa. I did use biliary fluorescence imaging during the process of dissection of the triangle of Calot. This did facilitate dissection and one could clearly see the cystic duct as it coursed up to and into the infundibulum of the gallbladder. Eventually the critical view of safety was able to be obtained. The only remaining structures coming forth from the infundibulum of the gallbladder were that of the cystic duct and cystic artery. The posterior aspect of the infundibulum was freed at this time. Next, a single Hem-o-sarita clip was placed upon the cystic duct adjacent to the infundibulum of the gallbladder. Two additional Hem-o-sarita clips were placed proximally. The cystic artery was then divided between the two distal clips. An additional clip was placed upon the cystic duct adjacent to the infundibulum of the gallbladder. Ductotomy was made just proximally. A cholangiocatheter was advanced through the ductotomy within the cystic duct and a cholangiogram was obtained under fluoroscopy. Under fluoroscopy one could see a long cystic duct before entering into the common bile duct. Proximally, one could see the intrahepatic radicles, left and right hepatic ducts and common hepatic. Distally, one could see good flow into the duodenum with an appropriate distal taper of the distal common bile duct. No filling defects were noted throughout the biliary tree. After obtaining a normal cholangiogram the cholangiocatheter was removed. Two additional hemoclips were placed proximally upon the cystic duct in relation to the prior ductotomy. The cystic duct was then divided between the two hemoclips. Secondary to the fact the gallbladder was somewhat intrahepatic in nature I elected to go ahead and proceed with an additional 5-mm port within the right upper quadrant in a right subcostal fashion. The liver parenchyma medial to the gallbladder was then retracted out laterally so that one could see the edges of the gallbladder to a greater extent. Next, the gallbladder itself was carefully and meticulously dissected off the gallbladder fossa and removed through the infraumbilical port once it had been placed within the laparoscopic retrieval bag. Pneumoperitoneum was reestablished. Irrigation was performed and all irrigant was suctioned until clear. The gallbladder fossa was inspected and found to be hemostatic in nature. The previously placed hemoclips were visualized and remained to be intact as well. Next, the ports were removed under direct visualization. The camera port was removed last and the previously placed U-stitch was secured, imbricating the fascia at the infraumbilical port site. All skin incisions were then closed with jenny. The patient is in the process of awakening from his anesthetic and will be sent to the recovery room once deemed in stable condition. Additionally, it should be noted that Chirag Lazo APRN, was present throughout the entire case and played a pivotal role in providing assistance and exposure during the course of the procedure. TRICE
[2017-09-26] MEDS: INSULIN ASPART 100unit/ml INJECTION SQ SCH (06:48)
[2017-09-26] MEDS: INSULIN ASPART 100unit/ml INJECTION SQ PRN (07:20)
[2017-09-26] MEDS: LOSARTAN 50 MG TABLET PO SCH (08:15)
[2017-09-26] MEDS: OXYCODONE IR PO SCH (08:15)
[2017-09-26] MEDS: METFORMIN 500 MG TABLET PO SCH (08:15)
[2017-09-26] MEDS: SENNA + DOCUSATE TABLET PO PRN (08:15)
[2017-09-26] MEDS: GABAPENTIN 800 MG TABLET PO SCH (08:15)
[2017-09-26] MEDS: TAMSULOSIN 0.4 MG CAPSULE PO SCH (08:16)
[2017-09-26] MEDS: NS 1,000 ML IV SCH (08:21)
[2017-09-26] MEDS ORDERED: FUROSEMIDE 40 MG TABLET PO SCH (09:00)
[2017-09-26] MEDS ORDERED: AMLODIPINE 10 MG TABLET PO SCH (09:00)
[2017-09-26] MEDS ORDERED: SERTRALINE 100 MG TABLET PO SCH (09:00)
[2017-09-26] MEDS ORDERED: WARFARIN - PHARMACY CONSULT MC ONE (09:19)
[2017-09-26] MEDS ORDERED: GLUCOSE ORAL GEL 40% 37.5gm PO PRN (09:30)
[2017-09-26] MEDS ORDERED: INSULIN ASPART 100unit/ml INJECTION SQ PRN (09:30)
--- NOTE | 2017-09-26 10:15 | General Surgery Progress Note ---
Subjective Patient reports: voiding w/o difficulty Narrative: He denies pain, although is on his home dose of Oxycodone 30 BID for back pain. Denies nausea and upset that he got only full liquids for breakfast. Will advance to regular. Voiding without difficulty. Ambulating at his usual pace. - Vital Signs Last Vital Signs Temp 96.3 F L 09/26/17 07:51 Pulse 60 09/26/17 08:00 Resp 20 09/26/17 07:51 BP 193/102 H 09/26/17 07:51 Pulse Ox 96 09/26/17 07:51 - Laboratory Result Diagrams: 09/26/17 04:46 09/26/17 04:46 Laboratory Tests 09/24/17 09/25/17 09/26/17 03:53 03:54 04:46 Total Bilirubin 1.40 H 1.40 H 1.50 H AST 38 ALT 51 H Laboratory Tests 09/26/17 04:46 INR 1.32 H - Radiology Intraoperative cholangiogram= no filling defects. - Abnormal Exam Abdominal: obese, incision(s) (umbilical incision with some fresh bloody ooze, not enough to saturate a large bandaid.) - Normal Exam General: awake, alert, oriented, no acute distress (wanting to go home) Cardiovascular: regular rate Respiratory: no labored breathing Abdominal: appropriately tender, incision(s) (jenny in tact, no erythema or ecchymosis) Psychiatric: normal affect Assessment and Plan (1) Gallstone pancreatitis Current Visit: Yes Status: Acute Plan: POD #1 Denies pain, is on scheduled Oxycodone 30 BID, no additional pain meds requested. Denies nausea, will have regular diet for lunch. INR 1.32, can restart coumadin. Bilirubin 1.5, this sometimes takes a few days to normalize, cholangiogram confirmed no common duct stone. Hospital Course Summary Disclaimer: The visit summary below is not to be considered part of the above Progress Note. Hospital Course: 09/24 Assessment Acute Gallstone pancreatitis Abdominal pain/RUQ pain Transaminitis-improving Back pain Constipation A fib with resting bradycardia Pacemaker dependent penitentiary anticoagulation DM2, on insulin Coronary artery disease Alzheimer's dementia Hx lumbar spinal stenosis Plan Plan for surgery (lap noe) tomorrow if INR <1.5 Discuss Vit K with surgery team Monitor labs Pain control PRN Glucose control, diabetic diet and glucose monitoring Begin bowel regimen SCDs 09/25 Assessment Acute Gallstone pancreatitis Abdominal pain/RUQ pain Transaminitis-improved Back pain Constipation-had moderate BM yesterday A fib with resting bradycardia Pacemaker dependent buttermaker continuous churn anticoagulation-currently on hold for surgery DM2, on insulin Coronary artery disease Alzheimer's dementia Hx lumbar spinal stenosis Plan Plan for surgery this afternoon Monitor labs Pain control PRN Glucose control, diabetic diet and glucose monitoring Continue bowel regimen Will discuss timing of restarting of anticoagulation with surgery team SCDs
[2017-09-26] MEDS ORDERED: WARFARIN 7.5 MG TABLET PO SCH (12:00)
--- NOTE | 2017-09-26 12:46 | Pharmacy Consult ---
Pharmacy Consult-Warfarin - Laboratory Information 09/23/17 09/24/17 09/25/17 12:07 03:53 03:54 INR 2.43 H 1.82 H 1.26 H 09/26/17 04:46 INR 1.32 H - Consult Information COUMADIN CONSULT (Initial): 72 yr old male patient who takes warfarin 7.5 mg daily at home. Dx:Acute pancreatitis and Lap [place] Baseline INR = 1.32. Patient did have a total of 10 mg Vit K given prior to surgery to bring his INR down -(5 mg on 09/23 and 5 mg on 09/24) below1.5 for surgery. At admit his INR was 2.43 Will give his home dose of 7.5 mg warfarin today. Pharmacy will monitor INR and adjust dose accordingly. Thank you. America Bonilla, PharmD
--- NOTE | 2017-09-26 13:45 | Progress Note ---
- Date 09/26/17 Subjective: F/U: s/p cholecystectomy with intraoperative cholangiogram 09/25/[address] Fowler (POD #1), acute pancreatitis, acute on chronic pain. Honorio is seen while resting in bed. He denies any current pain, though has been receiving his scheduled home Oxycodone 30mg BID for his chronic back pain. He denies any complaints or concerns. No chest pain, shortness of breath, abdominal pain, nausea, vomiting or dysuria. He is tolerating his clear liquid diet well and urinary output is stable. He is eager for discharge home. New hyperkalemia noted (K 5.2) and persistent hyperglycemia noted. Blood sugars remain elevated. INR subtherapeutic (1.32) with pharmacy managing. Objective Vital signs: Temperature 97.3 F 09/26/17 11:11 Pulse Rate 60 09/26/17 11:11 Respiratory Rate 16 09/26/17 11:14 Blood Pressure 174/78 H 09/26/17 11:11 Pulse Oximetry 95 09/26/17 11:14 Height/Weight/BMI: Height 6 ft 1 in Weight 297 lb 6.457 oz Body Mass Index 38.5 Comments: Patient resting in bed, no apparent distress. - Constitutional Present: no acute distress, well nourished, well developed, obese, cooperative - Routine HEENT Exam Head: Present: normocephalic, atraumatic Eye: Present: PERRL. Absent: conjunctival icterus ENT: Present: mucous membranes moist, oropharynx clear - Routine Respiratory Exam Present: CTA bilaterally. Absent: rales, respiratory distress, rhonchi, stridor , wheezes, crackles - Routine Cardiovascular Exam Present: RRR, S1, S2 - Routine Abdominal Exam Present: soft, normoactive bowel sounds, non distended, non tender - Routine Extremities Exam Present: full ROM, pulses intact - Routine Musculoskeletal Exam Musculoskeletal: Present: moving extremities well - Routine Skin Exam Present: dry, warm. Absent: jaundice Comments: afebrile. - Routine Neurological Exam Present: alert, oriented X3, moving all extremities, hearing grossly intact, normal speech - Routine Lymphatic Exam Lymphatic: Absent: lymphedema - Routine Psychiatric Exam Present: cooperative Results - Labs CBC & Chem 7: 09/26/17 04:46 09/26/17 04:46 Assessment and Plan (1) S/P cholecystectomy Problem details: 09/25/[address] Fowler Current visit: Yes Status: Acute (2) Acute pancreatitis Current visit: Yes Status: Resolved (3) Diabetes 1.5, managed as type 2 Current visit: Yes Status: Chronic (4) A-fib Current visit: Yes Status: Chronic (5) Chronic back pain greater than 3 months duration Current visit: Yes Status: Chronic Assessment and Plan: Assessment S/P cholecystectomy with intraoperative cholangiogram - 09/25/[address] Fowler. Acute Gallstone pancreatitis - resolved. Abdominal pain/RUQ pain - resolved. Transaminitis-improved Back pain, chronic. Constipation. A fib with resting bradycardia. Pacemaker dependent. intermediate anticoagulation with coumadin. DM2, on insulin. Coronary artery disease. Alzheimer's dementia. Hx lumbar spinal stenosis. Plan - 09/26/17: POD #1. Pain well controlled with home Oxycodone 30mg BID. Continue with bowel motivation. Hyperkalemia (K 5.2) noted this AM. Will hold AM dose of potassium and resume this evening. INR subtherapeutic. Pharmacy managing. Continue to monitor closely. Blood sugars remain elevated. Monitor closely as diet advances. Continue sliding scale insulin as needed. Patient uses Tresiba 30 units QHS at home. Will initiate Lantus 10 units QHS. Monitor blood sugars closely. Advance diet as tolerated per surgery. Continue to wean off oxygen - patient does not use oxygen at home. Anticipate discharge in near future. DVT Prophylaxis: SCD's, Coumadin Resuscitation Status: Full Code - Time spent with patient Time with patient PN: 30 minutes - Physician Narrative Physician: other (Dr. Rios) Narrative: Date: 09/26/17 Time: 1341 Hospital Course Summary Disclaimer: The visit summary below is not to be considered part of the above Progress Note. Hospital Course: 09/24 Assessment Acute Gallstone pancreatitis Abdominal pain/RUQ pain Transaminitis-improving Back pain Constipation A fib with resting bradycardia Pacemaker dependent rn ante partum anticoagulation DM2, on insulin Coronary artery disease Alzheimer's dementia Hx lumbar spinal stenosis Plan Plan for surgery (lap noe) tomorrow if INR <1.5 Discuss Vit K with surgery team Monitor labs Pain control PRN Glucose control, diabetic diet and glucose monitoring Begin bowel regimen SCDs 09/25 Assessment Acute Gallstone pancreatitis Abdominal pain/RUQ pain Transaminitis-improved Back pain Constipation-had moderate BM yesterday A fib with resting bradycardia Pacemaker dependent intermediate anticoagulation-currently on hold for surgery DM2, on insulin Coronary artery disease Alzheimer's dementia Hx lumbar spinal stenosis Plan Plan for surgery this afternoon Monitor labs Pain control PRN Glucose control, diabetic diet and glucose monitoring Continue bowel regimen Will discuss timing of restarting of anticoagulation with surgery team SCDs Plan - 09/26/17: POD #1. Pain well controlled with home Oxycodone 30mg BID. Continue with bowel motivation. Hyperkalemia (K 5.2) noted this AM. Will hold AM dose of potassium and resume this evening. INR subtherapeutic. Pharmacy managing. Continue to monitor closely. Blood sugars remain elevated. Monitor closely as diet advances. Continue sliding scale insulin as needed. Patient uses Tresiba 30 units QHS at home. Will initiate Lantus 10 units QHS. Monitor blood sugars closely. Advance diet as tolerated per surgery. Continue to wean off oxygen - patient does not use oxygen at home. Anticipate discharge in near future.
[2017-09-26 14:24] VITALS: BP 150/83; PULSE 70; RESP 12; TEMP 96.6; O2SAT 92
--- NOTE | 2017-09-26 14:41 | Discharge Summary ---
Discharge Information Date of admission: 09/22/17 21:44 Attending Physician: Ashanti Rios MD Primary care physician: Octaviano Cook MD Consults: 09/23/17 14:40 Physician Consult [CONS] Routine Consulting Provider: Juni Fowler Reason For Exam: gallstone pancreatitis Ordering Provider has Notified Fitness Coordinator: Yes - Discharge Diagnosis (1) Acute pancreatitis Status: Resolved (2) Diabetes 1.5, managed as type 2 Status: Chronic (3) A-fib Status: Chronic (4) Chronic back pain greater than 3 months duration Status: Chronic (5) S/P cholecystectomy Status: Acute Thrombocytopenia Acute hypoxic respiratory failure-resolved S/P cholecystectomy with intraoperative cholangiogram - 09/25/[address] Fowler. Acute Gallstone pancreatitis - resolved. Abdominal pain/RUQ pain - resolved. Transaminitis-improved Back pain, chronic. Constipation. A fib with resting bradycardia. HTN Pacemaker dependent. meterman anticoagulation with coumadin. DM2, on insulin. Coronary artery disease. Alzheimer's dementia. Hx lumbar spinal stenosis. - Procedures Procedures: DATE OF SERVICE 09/25/2017 SURGEON Juni Fowler MD PRODUCTION DEPARTMENT SUPERVISOR Chirag Lazo APRN PREOPERATIVE DIAGNOSIS Symptomatic cholelithiasis/gallstone pancreatitis. POSTOPERATIVE DIAGNOSIS Symptomatic cholelithiasis/gallstone pancreatitis. PROCEDURE Laparoscopic cholecystectomy with intraoperative cholangiogram. ANESTHESIA General endotracheal anesthesia. EBL/FLUIDS Please see chart. BRIEF HISTORY/INDICATIONS Mr. Sandy is a 72-year-old gentleman who recently was admitted to our facility as a result of severe abdominal pain and the findings of pancreatitis upon laboratory evaluation. The patient subsequently underwent additional radiographic evaluation following admission. He was found to have evidence for cholelithiasis and cholecystitis upon ultrasonography. It was recommended to the patient that he therefore undergo surgical intervention as a result of his finding of gallstone pancreatitis. For completeness please refer to notes included in the patient's chart. FINDINGS Upon laparoscopy the patient's liver was somewhat enlarged but Germania's capsule was smooth and without nodularities to suggest underlying cirrhosis. There was considerable omental fat within the peritoneal cavity which did limit visualization. The stomach and small bowel was dilated as well as the colon indicative of an ileus. Clinically, however, the patient was not complaining of an element of nausea or vomiting preoperatively. The gallbladder was somewhat intrahepatic in nature. The gallbladder was found to be thickened in nature and contained a small amount of pericholecystic edema indicative of inflammation. There was a small amount of ascitic fluid most likely as a result of his prior inflammatory response from his pancreatitis. The patient's enzymes had returned to normal today. He was without abdominal pain upon palpation. NARRATIVE OF PROCEDURE After informed consent was obtained the patient was brought to the operative suite and placed on the table in supine fashion. The abdomen was prepped and draped in sterile fashion. Formal timeout was then completed. 0.25% Marcaine with epinephrine was injected just beneath the level of the umbilicus. A 2-cm curved incision was made through the area of analgesia. Dissection was carried down to the underlying subcuticular tissues to the underlying fascia. The fascia was then grasped with two Claudio clamps and retracted anteriorly. A 1-cm incision was made between the two Claudio clamps. A hemostat was introduced into the fascial incision and gently spread. A mattress suture of 0-Vicryl was then placed at the fascial opening. A 12-mm Tera port was then placed in the peritoneal cavity and pneumoperitoneum was established to a patient pressure of 15 mmHg utilizing carbon dioxide. Next, three additional 5-mm ports were placed within the epigastric region, right mid abdomen and right lateral abdominal wall. Each port site was preinjected with 0.25% Marcaine with epinephrine and placed under direct visualization. Upon laparoscopy, as stated above, the liver was enlarged and did extend below the subcostal margin perhaps four to five fingerbreadths. There were some adhesions between the omentum and the lower edge of the liver. Initially, the gallbladder itself was not able to be visualized. The gallbladder was located out further laterally than one typically sees. There was a small amount of ascitic fluid present. As stated above, Germania's capsule was smooth and without nodularities. There was a component of distention of the stomach and the colon as well as small bowel. It was requested that Anesthesia place a nasogastric tube to decompress the stomach to facilitate better visualization. The omentum adjacent to the liver was then dissected away bluntly as well as with the use of electrocautery. At no point in time was electrocautery performed adjacent to a hollow viscus such as the transverse colon, duodenum or stomach. One could then now visualize the fundal portion of the gallbladder. The fundal portion of the gallbladder was grasped and retracted anteriorly. The omentum was continued to be dissected away from the liver edge as well as from the gallbladder. Visualization was difficult as a result of the patient's obesity and intraperitoneal fat. I elected therefore to place an additional port for retraction purposes. A 12-mm port was then placed along the left lateral abdominal wall under direct visualization. A Fan retractor was placed through this port and then placed adjacent to the gallbladder and the intraperitoneal fat/transverse colon and omentum was retracted caudally so that one could see the gallbladder to a greater extent. The procedure was technically difficult as a result of the patient's obesity and the fact that the gallbladder was intrahepatic in nature. Dissection was begun initially high upon the infundibulum of the gallbladder with the use of electrocautery. Lateral and medial aspects of the infundibulum of the gallbladder were incised. The posterior aspect of the infundibulum of the gallbladder was then freed from the liver bed fossa. I did use biliary fluorescence imaging during the process of dissection of the triangle of Calot. This did facilitate dissection and one could clearly see the cystic duct as it coursed up to and into the infundibulum of the gallbladder. Eventually the critical view of safety was able to be obtained. The only remaining structures coming forth from the infundibulum of the gallbladder were that of the cystic duct and cystic artery. The posterior aspect of the infundibulum was freed at this time. Next, a single Hem-o-sarita clip was placed upon the cystic duct adjacent to the infundibulum of the gallbladder. Two additional Hem-o-sarita clips were placed proximally. The cystic artery was then divided between the two distal clips. An additional clip was placed upon the cystic duct adjacent to the infundibulum of the gallbladder. Ductotomy was made just proximally. A cholangiocatheter was advanced through the ductotomy within the cystic duct and a cholangiogram was obtained under fluoroscopy. Under fluoroscopy one could see a long cystic duct before entering into the common bile duct. Proximally, one could see the intrahepatic radicles, left and right hepatic ducts and common hepatic. Distally, one could see good flow into the duodenum with an appropriate distal taper of the distal common bile duct. No filling defects were noted throughout the biliary tree. After obtaining a normal cholangiogram the cholangiocatheter was removed. Two additional hemoclips were placed proximally upon the cystic duct in relation to the prior ductotomy. The cystic duct was then divided between the two hemoclips. Secondary to the fact the gallbladder was somewhat intrahepatic in nature I elected to go ahead and proceed with an additional 5-mm port within the right upper quadrant in a right subcostal fashion. The liver parenchyma medial to the gallbladder was then retracted out laterally so that one could see the edges of the gallbladder to a greater extent. Next, the gallbladder itself was carefully and meticulously dissected off the gallbladder fossa and removed through the infraumbilical port once it had been placed within the laparoscopic retrieval bag. Pneumoperitoneum was reestablished. Irrigation was performed and all irrigant was suctioned until clear. The gallbladder fossa was inspected and found to be hemostatic in nature. The previously placed hemoclips were visualized and remained to be intact as well. Next, the ports were removed under direct visualization. The camera port was removed last and the previously placed U-stitch was secured, imbricating the fascia at the infraumbilical port site. All skin incisions were then closed with jenny. The patient is in the process of awakening from his anesthetic and will be sent to the recovery room once deemed in stable condition. Additionally, it should be noted that Chirag Lazo APRN, was present throughout the entire case and played a pivotal role in providing assistance and exposure during the course of the procedure. - Laboratory Labs: 09/26/17 04:46 09/26/17 04:46 Laboratory Tests 09/22/17 09/22/17 09/23/17 18:15 18:15 05:18 WBC 10.9 RBC 4.39 L Hgb 14.0 Hct 42.4 Plt Count 121 L INR Total Bilirubin AST 173 H D ALT 109 H D Lipase 70550 H 09/25/17 09/26/17 09/26/17 03:53 04:46 04:46 WBC 7.8 RBC 4.00 L Hgb 12.6 L Hct 39.3 L Plt Count 98 L INR Total Bilirubin 1.50 H AST 38 ALT 51 H Lipase 133 09/26/17 04:46 WBC RBC Hgb Hct Plt Count INR 1.32 H Total Bilirubin AST ALT Lipase - Radiology Radiology: Date of Exam: 09/22/17 Ordering Provider: Franki Humphries MD Type of Exam(s): CT abdomen pelvis wo con Reason for Exam(s): sudden epigastric/RUQ pain, elevated lipase 41K Indication: sudden epigastric/RUQ pain, elevated lipase 41K PROCEDURE: CT abdomen pelvis wo con: Encounter: Initial Comparison: Radiographs from the same date Technique: Axial CT images were performed through the abdomen and pelvis without intravenous contrast. Coronal and sagittal two-dimensional reformats. Automated Exposure Control and Iterative Reconstruction dose reducing techniques were utilized. Findings: Mild subpleural scarring in the lung bases. The unenhanced liver is grossly normal. The gallbladder is unremarkable. The spleen and left adrenal glands are within normal limits. There is questionable trace mesenteric stranding surrounding the pancreatic head. Minimal adenomatous hyperplasia of the right adrenal gland. Right renal cyst and small nonobstructing right renal stone. Left kidney is unremarkable. No abdominal or pelvic lymphadenopathy. The bladder is normal. Prostate and rectum are normal. No free fluid. No bowel obstruction. Moderate stool in the colon. The appendix is normal. Bone windows are negative for acute findings. Degenerative and postoperative changes in the thoracolumbar spine. Impression: CT findings of early or mild acute pancreatitis. Otherwise negative exam. There is a preliminary report by [employer]. . Date of Exam: 09/23/17 Ordering Provider: Seda Pearce MD Type of Exam(s): US gall bladder Reason for Exam(s): pancreatitis Indication: pancreatitis PROCEDURE: US gall bladder: Encounter: Initial Comparison: None Technique: Grayscale and color Doppler sonographic imaging of the right upper quadrant of the abdomen was performed. Findings: Hepatic parenchyma is homogeneous without evidence for focal mass. The gallbladder wall is abnormally thickened at 11 mm in diameter. Small mobile shadowing gallstones. Small amount of pericholecystic fluid. Sonographic Perdomo's sign was reportedly positive. Both the intra and extrahepatic biliary system are of normal caliber with the common duct measuring 7 mm in dimension. Visualized portions of the head and body of the pancreas are unremarkable. The right kidney is present without collecting system dilatation. The right kidney measures 14.8 cm in length. Prominent 5 cm right renal cyst. Impression: Acute cholecystitis. Surgical consultation is recommended. . Date of Exam: 09/25/17 Ordering Provider: Juni Fowler MD Type of Exam(s): RF cholangiogram operative Reason for Exam(s): IOC Indication: IOC PROCEDURE: RF cholangiogram operative: Comparison: Gallbladder ultrasound dated September 23, 2017 Findings: 4 fluoroscopic spot images are submitted from an intraoperative cholangiogram. Images demonstrate injection of contrast into the cystic duct with filling of the common duct and intrahepatic biliary tree. No discrete filling defects are identified. Contrast flows into the duodenum. Impression: Intraoperative fluoroscopy as above. Please refer to the dictated operative note for further details. Fluoroscopy time is 22.9 seconds. Fluoroscopy dose is 1440 mRad. . Date of Exam: 09/22/17 Ordering Provider: Franki Humphries MD Type of Exam(s): XR acute abdomen series Reason for Exam(s): epigastric pain with radiation into the back and chest Indication: epigastric pain with radiation into the back and chest PROCEDURE: PA view of the chest with supine and upright AP views of the abdomen Encounter: Initial Comparison: CT abdomen from the same date FINDINGS: Scarring in the lung bases. No acute pneumonia. No pleural effusion or pneumothorax. The heart size, pulmonary vasculature and mediastinum are within normal limits. Left pacemaker. There is no free air on the upright view. The bowel gas pattern is nonobstructive and nonspecific. Gas is seen in nondilated small and large bowel to the level of the rectum. Moderate stool is seen throughout the colon. IMPRESSION: 1. No acute cardiopulmonary abnormality. 2. No evidence of acute obstruction or free air. . History of Present Illness HPI: Per H&P Mr. Sandy is a 72-year-old male who developed acute epigastric abdominal pain reportedly 4:30 yesterday afternoon. He describes pain as severe, constant, non- cramping, and radiating into the back. There is no associated nausea, vomiting, fever, or chills. He denied difficulty breathing, or diaphoresis. He presented to the emergency room where troponin was unremarkable and lipase was 41,383. CT of the abdomen and pelvis revealed mild stranding around the pancreatic head but no biliary pathology. Patient is admitted for symptomatic management. Overnight abdominal pain has improved significantly and patient has needed only his usual pain medications (taken for management of chronic back pain) this morning. Objective Vital signs: Temperature 96.6 F L 09/26/17 14:21 Pulse Rate 70 09/26/17 14:21 Respiratory Rate 12 09/26/17 14:21 Blood Pressure 150/83 H 09/26/17 14:21 Pulse Oximetry 92 09/26/17 14:21 Rhythm: Normal Sinus Rhythm Height/Weight/BMI: Height 6 ft 1 in Weight 134.9 kg Body Mass Index 38.5 - Constitutional Present: no acute distress - Routine HEENT Exam Head: Present: normocephalic, atraumatic Eye: Present: EOMI, conjunctivae pink ENT: Present: mucous membranes moist, nares patent - Routine Respiratory Exam Present: CTA bilaterally. Absent: accessory muscle use - Routine Cardiovascular Exam Present: RRR, no murmur - Routine Abdominal Exam Present: soft, normoactive bowel sounds, non distended, non tender - Routine Extremities Exam Present: no edema. Absent: cyanosis, clubbing - Routine Musculoskeletal Exam Musculoskeletal: Present: no clubbing or cyanosis, normal strength - Routine Skin Exam Present: intact, dry, warm - Routine Neurological Exam Present: alert, oriented X3, CN II-XII intact - Routine Psychiatric Exam Present: normal affect Hospital Course Hospital course: Patient is a pleasant 72 year old gentleman who presented with gall stone pancreatitis. He underwent cholecystectomy during admission. He was discharged home in stable condition with follow up instructions. He was instructed to resume his home warfarin dose and have INR repeated at follow up appointment as well as CMP and CBC to monitor bilirubin, LFTs and platelets. See below for daily detailed plan. 09/24 Plan for surgery (lap noe) tomorrow if INR <1.5 Discuss Vit K with surgery team Monitor labs Pain control PRN Glucose control, diabetic diet and glucose monitoring Begin bowel regimen SCDs 09/25 Plan for surgery this afternoon Monitor labs Pain control PRN Glucose control, diabetic diet and glucose monitoring Continue bowel regimen Will discuss timing of restarting of anticoagulation with surgery team SCDs 09/26/17 POD #1. Pain well controlled with home Oxycodone 30mg BID. Continue with bowel motivation. Hyperkalemia (K 5.2) noted this AM. Will hold AM dose of potassium and resume this evening. INR subtherapeutic. Pharmacy managing. Continue to monitor closely. Blood sugars remain elevated. Monitor closely as diet advances. Continue sliding scale insulin as needed. Patient uses Tresiba 30 units QHS at home. Will initiate Lantus 10 units QHS. Monitor blood sugars closely. Advance diet as tolerated per surgery. Continue to wean off oxygen - patient does not use oxygen at home. Anticipate discharge today Time spent with patient: discharge greater than 30 minutes Discharge Plan - Discharge Disposition Discharge Date: 09/26/17 Disposition: Discharged Home, Self-Care *Condition: Improved Reason For Visit (Visit label in EMR): pancreatitis - Discharge Medications *Discharge Medications: Continue RX: Tamsulosin [Flomax] 0.4 mg PO AM RX: Donepezil [Aricept] 5 mg PO HS RX: Metformin [Glucophage] 500 mg PO BIDWM RX: Atorvastatin [Lipitor] 10 mg PO HS RX: Metaxalone 800 mg PO TID PRN PRN Reason: Prn Orders RX: Nitroglycerin 0.4 mg SL Q5M PRN PRN Reason: Chest Pain RX: Insulin Lispro [HumaLOG] 10 - 15 unit SQ TIDWM RX: Warfarin [Coumadin] 7.5 mg PO DAILY RX: Insulin Degludec *U100* [Tresiba Flextouch U-100 Pen] 30 unit SQ HS RX: Amlodipine [Norvasc] 10 mg PO DAILY RX: Cholecalciferol (Vitamin D3) [Vitamin D3] 50,000 unit PO MOTH@0800 RX: Sertraline [Zoloft] 100 mg PO DAILY RX: Ferrous Sulfate [Feosol] 325 mg PO DAILY RX: Docusate Sodium [Colace] 100 mg PO BID RX: Oxycodone/Acetaminophen 5/325 [Percocet 5/325] 1 tab PO Q6H PRN PRN Reason: Pain RX: Losartan Potassium [Cozaar] 25 mg PO DAILY RX: Oxycodone *IR* [Roxicodone *Ir*] 30 mg PO BID #20 tab RX: Furosemide [Lasix 20 mg Tab] 40 mg PO DAILY RX: Gabapentin [Neurontin] 800 mg PO TID RX: Potassium Chloride [K-Tab ER] 20 meq PO DAILY RX: Magnesium Hydroxide [Montiel' Milk of Magnesia] 622 mg PO HS - Discharge Packet/Instructions *Diet: diabetic *Activity: Do not drive, operate machinery for 24 hours after surgery or while taking pain medication. No lifting more than 25 pounds for 4 weeks. *Pain Management/Treatment: Follow prescriptions as prescribed *Wound Care: Keep jenny coverd for 3 days, then may leave open to air or cover. Change bandaids if they get bloody or wet. Do NOT let a wet bandaid stay on an incision. *Expected Signs/Symptoms: tenderness and bruising at inicisions *Notify Physician if: 1. Call your surgeon if you are having problems relating to your surgery at [phone]. 2. Problems such as: Temp above 101.5 degrees. You develop redness, excessive swelling of the incision, increasing pain or excessive foul smelling drainage. 3. If the office is closed, call [facility] at [phone] and have your Surgeon paged. *During Business Hours Contact: Call your surgeon at at [phone]. *After Business Hours Contact: If the office is closed, call [facility] at [phone] and have your Surgeon paged. *Pending Lab/Results: Will review at F/U Appt - Referrals/Follow Up *Referrals/Follow Up: Juni Fowler MD [Physician] - 10/10/17 1:15 pm cOtaviano Cook MD [Family Provider] - 3 Days - Patient Handouts Patient Handouts: Laparoscopic Cholecystectomy (DC) - Dismissal Complete Discharge Instructions are:: Complete Physician Narrative - Narrative Physician: other Attestation Narrative: Date: 09/26/17 Time: 1437
--- NOTE | 2017-09-26 15:09 | Progress Note ---
DATE 09/26/2017 FINDINGS Mr. Sandy was seen on rounds earlier today. He was in good spirits. He denied significant abdominal pain. States he has been eating without difficulty. He is to eat a regular lunch. OBJECTIVE VITALS: Afebrile. Normotensive. Please refer to EMR. ABDOMEN: Soft. Minimal incisional tenderness present. LABORATORY/RADIOGRAPHIC EVALUATION The patient had a CBC and CMP obtained today. Liver function tests remain stable. Potassium is slightly elevated at 5.2. ASSESSMENT 72-year-old gentleman status post laparoscopic cholecystectomy secondary to gallstone pancreatitis. Patient doing well from surgical standpoint. PLAN I do believe the patient could be discharged this afternoon if he tolerates a regular diet for lunch. A followup appointment will be put into EMR in regards to his discharge instructions. TRICE
[2017-09-26] MEDS ORDERED: INSULIN GLARGINE 100unit/ml INJECTION SQ SCH (21:00)
== END 2017-09-26 15:40 | disposition home or self-care (01) | DRG 419 ==
LOC: ED 17:09 → SUATTDRO 21:44 → MED 21:44
PROVIDERS: ADMIT Internal Medicine; ATTEND Pediatrics